=== PATIENT | male | born 1955 | race Caucasian/White ===

== ENCOUNTER → 2021-11-06 | Day surgery (SDC) | payer MEDICARE ==
[2021-11-03 15:13] VITALS: BMI 26.6
[~2021-11-06] MED LIST: LACTATED RINGERS 1,000 ML IV SCH; LIDOCAINE 1% (10MG/ML) FOR IV START INTRADERMA PRN; PROPOFOL 10 MG/ML 20 ML VIAL IV ONE
[2021-11-06 08:38] VITALS: TEMP 97
--- NOTE | 2021-11-06 09:33 | P.GSHP ---
History of Present Illness H&P Date: 11/06/21 Chief Complaint: Screening colonoscopy This is a 66-year-old male who presents today for screening colonoscopy. Patient denies a significant GI complaints. Past Medical History Past Medical History: Hyperlipidemia, Hypertension Additional Past Medical History / Comment(s): Old hx collapsed lung x2. Hx Covid 06/2021. History of Any Multi-Drug Resistant Organisms: None Reported Past Surgical History: Hernia Repair Past Anesthesia/Blood Transfusion Reactions: No Reported Reaction Smoking Status: Never smoker - Past Family History Mother Family Medical History: Cancer Additional Family Medical History / Comment(s): Pancreatic cancer. Poss blood clot, "was watched." Medications and Allergies Home Medications Medication Instructions Recorded Confirmed Type Albuterol Inhaler [Ventolin Hfa 2 puff INHALATION RT-QID PRN 11/03/21 11/06/21 History Inhaler] Atorvastatin [Lipitor] 20 mg PO HS 11/03/21 11/06/21 History Metoprolol Succinate [Toprol XL] 25 mg PO DAILY 11/03/21 11/06/21 History Allergies Allergy/AdvReac Type Severity Reaction Status Date / Time No Known Allergies Allergy Verified 11/06/21 08:38 Surgical - Exam Vital Signs Temp Pulse Resp BP Pulse Ox 97.0 F L 108 H 17 126/73 95 11/06/21 08:36 11/06/21 08:36 11/06/21 08:36 11/06/21 08:36 11/06/21 08:36 - General well developed, well nourished, no distress - Eyes PERRL - ENT normal pinna - Neck no masses - Respiratory normal expansion - Cardiovascular Rhythm: regular - Abdomen Abdomen: soft, non tender Assessment and Plan Assessment: We'll perform screening colonoscopy
--- NOTE | 2021-11-06 09:47 | P.OP ---
Date of Procedure: 11/06/21 Preoperative Diagnosis: Screening colonoscopy Postoperative Diagnosis: Mild diverticulosis Procedure(s) Performed: Colonoscopy Anesthesia: MAC Surgeon: Jose Davis Pathology: none sent Condition: stable Disposition: PACU Description of Procedure: The patient's placed on the endoscopy table in the lateral position. He received IV sedation. Digital rectal exam was performed which revealed no abnormalities. Resting symmetric without nodules. Flexible colonoscope was then placed patient anus passed throughout the entire colon. The ileocecal valve was visualized. The cecum, ascending and transverse colon appeared normal. The descending and sigmoid colon had mild diverticular changes. Scope was brought back the rectum and this appeared normal. Scope withdrawn for patient.
[2021-11-06 10:22] VITALS: BP 118/75; PULSE 91; RESP 16
== END ==
LOC: ORWHC2ENDO 08:11
PROVIDERS: ATTEND Surgery
DX: Z12.11 Encounter for screening for malignant neoplasm of colon (principal); K57.90 Diverticulosis of intestine, part unspecified, without perforation or abscess without bleeding
CPT/HCPCS: G0121; J2704

== ENCOUNTER → 2024-11-16 | Outpatient (CLI) | payer MEDICARE ==
--- NOTE | 2024-11-16 09:14 | NM ---
EXAMINATION TYPE: NM stress cardiolite complete DATE OF EXAM: 11/16/2024 COMPARISON: NONE CLINICAL INDICATION: Male, 69 years old with history of R06.09 DYSPNEA I49.3; hypertension and hyper cholesterolemia. Family history of coronary artery disease. TECHNIQUE: After the intravenous administration of 10.1 mCi Tc 99m Sestamibi - Rest images obtained 50 minutes post injection. The patient exercised using a REGINO protocol and 1 minute prior to peak exercise was injected with 26.1 mCi Tc 99m Sestamibi - Stress images obtained 20 minutes post injecti on. FINDINGS: Targeted heart rate was achieved during performance of the study. Review of stress and rest SPECT cathie ges demonstrates no distinct perfusion abnormality. Gated analysis shows normal wall motion with an estimated left ventricular ejection fraction of 59 %. IMPRESSION: No scintigraphic evidence for reversible ischemia [facility], , 11/16/2024 9:12 AM
--- NOTE | 2024-11-16 16:24 | CA ---
Exercise Nuclear Stress Test Report Name: Maycol Mcgraw Exam Date: 11/16/2024 07:56 Exam Location: [place] Stress Ht (in): 66 Wt (lb): 165 BSA: 1.84 Ordering Phys: Heaven Pace DO Referring Phys: Dana Tian Technologist: BACILIO Age: 69 Gender: M : 1955 Procedure CPT: Indications: R06.09 DYSPNEA I49.3 ICD-10 Codes: Patient History: Shortness of breath on exertion and abnormal EKG Medications: Meds past 24 hrs: Pretest Chest Pain: STRESS TEST Nathen Protocol Exercise Duration (min:sec): 05:[address] Depressions (mm): Angina Score: Frost Score: Resting HR (bpm): 90 Peak HR (bpm): 164 Resting BP (mmHg): 135 / 85 Peak BP (mmHg): / 66 MPHR: 151 Target HR: 128 % MPHR: 109 METS: 7.1 Total Dose: Peak Dose: Atropine: Double Product: BP Response: Stress Termination: Reached target heart rate Stress Symptoms: Dyspnea Stress Summary: ECG ANALYSIS Resting ECG: Stress ECG: CONCLUSIONS Patient underwent exercise stress Cardiolite with a Nathen protocol treadmill stress test. Patient exercised into Stage 2 for a total of 5 minutes and 39 seconds reaching a total of 7.1 METS. Patient's maximum heart rate was 164 which represented 108 % age-predicted maximum heart rate. Stress EKG findings: At baseline patient's EKG showed normal sinus rhythm, normal axis, no significant ST or T wave abnormalities. At peak exercise, EKG showed no significant change from baseline. Conclusions: 1. Normal EKG response to exercise without evidence of inducible ischemia. 2. Fair exercise capacity. 3. Nuclear portion to be reported separately Dr. Sav Goldstein DO (Electronically Signed) Final Date: 16 November 2024 16:23
== END | disposition home or self-care (01) ==
LOC: RADNMMAIN 06:36
PROVIDERS: ATTEND Family Medicine
DX: R06.09 Other forms of dyspnea (principal); E78.00 Pure hypercholesterolemia, unspecified; I10 Essential (primary) hypertension; Z82.49 Family history of ischemic heart disease and other diseases of the circulatory system
CPT/HCPCS: 93017; 78452; A9500

== ENCOUNTER → 2025-04-02 | Outpatient (CLI) | payer MEDICARE ==
[2025-04-02 15:42] LABS: African American GFR (CKD) 86 (>60 ml/min/1.73 sqM); Blood Urea Nitrogen 17 mg/dL (9-20); Non-African American GFR(CKD) 74 (>60 ml/min/1.73 sqM)
--- NOTE | 2025-04-02 17:58 | CT ---
EXAMINATION TYPE: CT chest wo/w con DATE OF EXAM: 04/02/2025 5:39 PM COMPARISON: None. CLINICAL INDICATION: Male, 70 years old with history of R07.81 PLEURODYNIA R06.02 SHORTNESS OF BREATH , Pt states he has hx of bilateral partial lung collapse, most recently last week TECHNIQUE: Axial images were obtained at 5 mm thick sections. Reconstructed images are reviewed on [employer] computer in the coronal plane. Contrast used:100ml mL of Isovue 300 with IV Contrast, (none if empty) Oral contrast used: (none if empty) CT DLP: 562.80 mGycm, Automated exposure control for dose reduction was used. FINDINGS: Portion of the thyroid visualized is normal. There is a pleural-based density measuring 3.1 x 1.1 cm posterior lateral right lower lung field. Ser ies 4 image 42. Follow-up is recommended. No pneumothorax is evident. No enlarged mediastinal or hilar adenopathy is evident. The ascending aorta diameter at the level o f the main pulmonary artery is 2.8 cm. The main pulmonary artery diameter at the bifurcation is 2.5 cm. Minimal pericardial effusion is present No significant coronary artery calcifications. Limited CT sections are obtained through the upper abdomen. Cholelithiasis present. There is a large cyst superior pole right kidney measuring 6.7 cm. IMPRESSION: 1. Pleural-based density right posterior lateral lung. Additional workup recommended. 2. Minimal pericardial effusion. 3. Cholelithiasis. [facility], , 04/02/2025 5:56 PM
== END | disposition home or self-care (01) ==
LOC: RADCTMAIN 14:42
PROVIDERS: ATTEND Family Medicine
DX: J98.4 Other disorders of lung (principal); I31.39 Other pericardial effusion (noninflammatory); K80.20 Calculus of gallbladder without cholecystitis without obstruction
CPT/HCPCS: 82565; 84520; 71270; 36415; Q9967

== ENCOUNTER → 2025-05-04 | Outpatient (CLI) | payer MEDICARE ==
--- NOTE | 2025-05-06 16:00 | PE ---
EXAMINATION TYPE: PET CT fusion skull to thigh DATE OF EXAM: 05/04/2025 CLINICAL INDICATION:Male, 70 years old with history of R91.8 SPN; TECHNIQUE: Following the intravenous administration of 9.3 mCi of F-18 FDG, whole body images are p erformed from the skull base to the Mid thigh. Images are reviewed on the computer in the coronal, a xial, and sagittal planes. Reconstructed rotating images are created on independent workstation and reviewed on the computer. A non-contrast CT is performed in conjunction with the PET scan. Glucose level 126 mg/dL CT DLP: 678 mGycm, Automated exposure control for dose reduction was used. COMPARISON: CT 04/02/2025., PET/CT None, MRI: None FINDINGS: Mediastinal SUV mean is 2.5. Hepatic parenchyma SUV mean is 3.1. SKULL BASE AND NECK: Nonenlarged lymph node near the right common carotid artery max SUV 3.9 measuring 5 mm in short axis. CHEST, MEDIASTINUM, AND HILAR REGION: Suspicious uptake identified; examples include: Scattered areas of uptake along the pleura. Examples include * Pleural-based consolidation along the right lower lung max SUV 20.0. Area of uptake is roughly 2.5 x 1.1 cm. * Additional smaller areas anterior laterally max SUV 3.5 area 9 mm additional area more laterally m easuring Max SUV 4.3 minutes is along the pleura and more defined appearance. * Posteriorly and superiorly max SUV 6.2. This measures 12 mm on PET imaging. ABDOMEN AND PELVIS: * There is mild uptake within bilateral inguinal region soft tissue measuring 10 mm on the right adn exa C4.2 and 13 mm on the left measuring Max SUV 3.7 * Mild uptake within the prostate gland which is ill-defined axis SUV 3.9. MUSCULOSKELETAL STRUCTURES: No suspicious radiotracer activity. OTHER CT: Small pericardial effusion. Cholelithiasis. Right renal cysts which appear simple. No ectop ic minute. Nonobstructing right renal calculi measuring up to 3 mm. Appendix is normal. Prostatomegal y. IMPRESSION: 1. Intense uptake in the area of pleural thickening in the right lower lung with additional areas of uptake along the pleura with nodular appearance. Findings concerning for malignancy. Right low neck lymph node also present possibly metastatic disease. 2. Indeterminate bilateral inguinal region soft tissue near the inguinal canals with mild mild uptak e unclear etiology. 3. Mild uptake within the prostate gland which is ill-defined and not focal. Correlate with serum PS A.. [facility], , 05/06/2025 3:57 PM
== END | disposition home or self-care (01) ==
LOC: RADPETMAIN 09:11
PROVIDERS: ATTEND Family Medicine
DX: R91.1 Solitary pulmonary nodule (principal); J94.8 Other specified pleural conditions
CPT/HCPCS: 78815; A9552